=== PATIENT | male | born 1990 | race Caucasian/White ===

== ENCOUNTER 2017-02-21 23:11 | Emergency (ER) | payer OTHER ==
[~2017-02-21 23:11] MED LIST: ATARAX,VISTARIL25 MG PO; BUSPAR10 MG PO; CELEXA20 MG PO; CITALOPRAM HBR40 MG PO; DIVALPROEX SOD250 M1 PO; DIVALPROEX SOD250 MG PO; DOXYCYCLINE HY100 MG PO; FLUOXETINE HCL10 MG PO; FLUOXETINE HCL20 MG PO; HYDROXYZINE PAM50 MG PO; MOBIC7.5 MG PO; MOTRIN600 MG PO; NO HOME MEDS; NORCO 5/3251 TABLET PO; PEN-VEE K,VEET250 MG PO; PERCOCET 5/31 TABLET PO; PROZAC20 MG PO; TRAZODONE HCL50 MG PO; ULTRAM50 MG PO; VICODIN 5-3001 EACH PO
[2017-02-21 23:33] LABS: BASOPHIL COUNT 0.1 K/uL (0-0.1); EOSINOPHIL COUNT 0.1 K/uL (0-0.3); HEMATOCRIT 43.6 % (38.0-50.0); IMMATURE GRANULOCYTE (%) 0.4 % (0.0-0.7); IMMATURE GRANULOCYTE COUNT 0.1 K/uL; INSTRUMENT ABS NEUTROPHIL CT 9.8 K/uL; LYMPHOCYTE COUNT 2.7 K/uL (1.0-2.8); MCH 30.8 PG (29.0-34.0); MCHC 34.6 G/DL (30.0-36.0); MCV 88.8 FL (86-99); MEAN PLAT.VOLUME 10.1 uM^3 (9.0-12.4); MONOCYTE (%) 6.1 % (3-12); MONOCYTE COUNT 0.8 K/uL (0-0.8); NEUTROPHIL (%) 72.1 % (45-76); NEUTROPHIL COUNT 9.8 K/uL (1.8-6.4); PLATELET COUNT 242 K/uL (156-360); RBC DIS.WIDTH-CV 12.2 % (11.8-14.6); RBC DIS.WIDTH-SD 39.6 % (39-53); RED BLOOD COUNT 4.91 M/uL (4.00-5.50); WHITE BLOOD COUNT 13.5 K/uL (4.1-10.2)
[2017-02-21 23:45] LABS: AMYLASE 72 IU/L (1-118); CHLORIDE 108 mEq/L (99-109); POTASSIUM 3.7 mEq/L (3.7-5.4); SODIUM 144 mEq/L (136-147)
[2017-02-21 23:47] LABS: GLUCOSE 97 mg/dL (70-99)
[2017-02-21 23:48] LABS: ANION GAP 12 MEQ/L (2-14)
[2017-02-21 23:50] LABS: SERUM ETHYL ALCOHOL 134 mg/dL
[2017-02-21 23:51] LABS: GFR ESTIMATE (CALCULATED) > 59 mL/min/
[2017-02-21 23:52] LABS: UREA NITROGEN (BUN) 12 mg/dL (9-23)
[2017-02-21 23:54] LABS: LIPASE 8 U/L (1.0-51.0)
[2017-02-22] MEDS ORDERED: KEFLEX500 MG PO (00:22)
[2017-02-22 04:03] LABS: ADD MIUA? NO; BILIRUBIN NEGATIVE; BLOOD NEGATIVE; COLOR YELLOW ((YELLOW)); GLUCOSE (STRIP) NEGATIVE; KETONES 5; LEUKOCYTES NEGATIVE; NITRITE NEGATIVE; PROTEIN (STRIP) NEGATIVE; UCUL ADDED? NO
[2017-02-22 04:26] LABS: ADD MEDTOX COMMENT Y; AMPHETAMINE PRESUMPTIVE POSITIVE (500 ng/mL); BARBITURATES NEGATIVE (200 ng/mL); BENZODIAZEPINES PRESUMPTIVE POSITIVE (150 ng/mL); COCAINE NEGATIVE (150 ng/mL); INTERNAL CONTROLS VALID? YES; METHADONE NEGATIVE (200 ng/mL); METHAMPHETAMINE NEGATIVE (500 ng/mL); OPIATES (MORPHINE) NEGATIVE (100 ng/mL); OXYCODONE NEGATIVE (100 ng/mL); PHENCYCLIDINE NEGATIVE (25 ng/mL); PROPOXYPHENE NEGATIVE (300 ng/mL); THC CANNABINOIDS PRESUMPTIVE POSITIVE (50 ng/mL); TRICYCLIC ANTIDEPRESSANTS NEGATIVE (300 ng/mL)
[2017-02-22 04:48] LABS: SPECIFIC GRAVITY 1.055 (1.000-1.030)
[2017-02-22 05:16] LABS: AMPHETAMINES QUANT VALUE 0 NG/ML; BENZODIAZEPINES QUANT VALUE 0 NG/ML; BENZODIAZEPINES, URINE SCREEN Negative (200 ng/mL)
== END 2017-02-22 04:10 | disposition home or self-care (01) ==
LOC: TRA 23:11 → EDBD 23:11 → TRA 02-22 04:10
PROVIDERS: Emergency Medicine
DX: S40.812A Abrasion of left upper arm, initial encounter (principal); S40.811A Abrasion of right upper arm, initial encounter; S06.0X0A Concussion without loss of consciousness, initial encounter; M54.9 Dorsalgia, unspecified; V48.4XXA Person boarding or alighting a car injured in noncollision transport accident, initial encounter; Y92.410 Unspecified street and highway as the place of occurrence of the external cause; F10.99 Alcohol use, unspecified with unspecified alcohol-induced disorder; Y90.6 Blood alcohol level of 120-199 mg/100 ml
CPT/HCPCS: 70450; 71260; 72125; 72129; 72132; 74177; 80048; 81003; 82150; 83690; 84999; 85025; 86900; 86901; 99281; 99285; G0480; J2060; J2405; J3010

== ENCOUNTER 2017-03-27 03:13 | Inpatient (IN) | payer OTHER ==
[~2017-03-27] VITALS: Ht 180.3 cm; Wt 63.3 kg
[~2017-03-27 03:13] MED LIST changes: +KEFLEX500 MG PO
[2017-03-27 03:36] LABS: HEMATOCRIT 40.5 % (38.0-50.0); MCH 31.2 PG (29.0-34.0); MCHC 34.6 G/DL (30.0-36.0); MCV 90.2 FL (86-99); MEAN PLAT.VOLUME 10.4 uM^3 (9.0-12.4); PLATELET COUNT 207 K/uL (156-360); RBC DIS.WIDTH-CV 12.3 % (11.8-14.6); RBC DIS.WIDTH-SD 40.5 % (39-53); RED BLOOD COUNT 4.49 M/uL (4.00-5.50); WHITE BLOOD COUNT 11.1 K/uL (4.1-10.2)
[2017-03-27 03:45] LABS: CHLORIDE 107 mEq/L (99-109); POTASSIUM 3.2 mEq/L (3.7-5.4); SODIUM 142 mEq/L (136-147)
[2017-03-27 03:47] LABS: GLUCOSE 97 mg/dL (70-99)
[2017-03-27 03:48] LABS: ANION GAP 10 MEQ/L (2-14)
[2017-03-27 03:50] LABS: SERUM ETHYL ALCOHOL < 10 mg/dL
[2017-03-27 03:51] LABS: GFR ESTIMATE (CALCULATED) > 59 mL/min/; UREA NITROGEN (BUN) 14 mg/dL (9-23)
[2017-03-27 07:48] VITALS: BP 135/78
[2017-03-27 16:09] VITALS: BP 132/76
[2017-03-27 19:42] LABS: ADD MIUA? NO; BILIRUBIN NEGATIVE; BLOOD NEGATIVE; COLOR YELLOW ((YELLOW)); GLUCOSE (STRIP) NEGATIVE; KETONES NEGATIVE; LEUKOCYTES NEGATIVE; NITRITE NEGATIVE; PROTEIN (STRIP) NEGATIVE; SPECIFIC GRAVITY 1.015 (1.000-1.030); UCUL ADDED? NO
[2017-03-27 20:14] LABS: AMPHETAMINE NEGATIVE (500 ng/mL); BARBITURATES NEGATIVE (200 ng/mL); BENZODIAZEPINES NEGATIVE (150 ng/mL); COCAINE NEGATIVE (150 ng/mL); INTERNAL CONTROLS VALID? YES; METHADONE NEGATIVE (200 ng/mL); METHAMPHETAMINE NEGATIVE (500 ng/mL); OPIATES (MORPHINE) NEGATIVE (100 ng/mL); OXYCODONE NEGATIVE (100 ng/mL); PHENCYCLIDINE NEGATIVE (25 ng/mL); PROPOXYPHENE NEGATIVE (300 ng/mL); THC CANNABINOIDS PRESUMPTIVE POSITIVE (50 ng/mL); TRICYCLIC ANTIDEPRESSANTS NEGATIVE (300 ng/mL)
[2017-03-27 20:15] LABS: ADD MEDTOX COMMENT Y
[2017-03-28 07:49] VITALS: BP 119/58
[2017-03-28 15:37] VITALS: BP 141/78
[2017-03-29 07:47] VITALS: BP 140/64
[2017-03-29 15:49] VITALS: BP 134/79
[2017-03-30 07:46] VITALS: BP 110/75
[2017-03-30] MEDS ORDERED: RISPERDAL2 MG PO (09:44)
[2017-03-30] MEDS ORDERED: FLUOXETINE HCL20 MG PO (09:44)
[2017-03-30] MEDS ORDERED: DIVALPROEX SOD500 MG PO (09:44)
== END 2017-03-30 11:21 | disposition home or self-care (01) | DRG 885 ==
LOC: EME 03:13 → 1WEST 05:20 → EDOF 05:20 → 1WEST 05:57 → ENRESERV 05:57 → 1WEST 03-30 11:21
PROVIDERS: Emergency Medicine
DX: F29 Unspecified psychosis not due to a substance or known physiological condition (principal); R45.851 Suicidal ideations; Z68.1 Body mass index [BMI] 19.9 or less, adult; F33.9 Major depressive disorder, recurrent, unspecified; F19.121 Other psychoactive substance abuse with intoxication delirium; F12.10 Cannabis abuse, uncomplicated; F63.9 Impulse disorder, unspecified; F11.10 Opioid abuse, uncomplicated; F16.90 Hallucinogen use, unspecified, uncomplicated; F17.210 Nicotine dependence, cigarettes, uncomplicated; Z91.14 Patient's other noncompliance with medication regimen; Z56.0 Unemployment, unspecified; Z59.0 Homelessness; Z65.3 Problems related to other legal circumstances
CPT/HCPCS: 80048; 80164; 81003; 84999; 85027; 90837; 97150 GO; 97165 GO; 99281; 99285; G0480; Q0177

== ENCOUNTER 2017-04-28 21:57 | Emergency (ER) | payer OTHER ==
[~2017-04-28] VITALS: Ht 177.8 cm; Wt 70.0 kg
[~2017-04-28 21:57] MED LIST changes: +DIVALPROEX SOD500 MG PO; +RISPERDAL2 MG PO
[2017-04-28 22:49] LABS: HEMATOCRIT 44.7 % (38.0-50.0); MCH 30.7 PG (29.0-34.0); MCHC 33.8 G/DL (30.0-36.0); MCV 90.9 FL (86-99); MEAN PLAT.VOLUME 10.2 uM^3 (9.0-12.4); PLATELET COUNT 225 K/uL (156-360); RBC DIS.WIDTH-CV 12.7 % (11.8-14.6); RBC DIS.WIDTH-SD 42.7 % (39-53); RED BLOOD COUNT 4.92 M/uL (4.00-5.50); WHITE BLOOD COUNT 7.8 K/uL (4.1-10.2)
[2017-04-28 23:22] LABS: ANION GAP 12 MEQ/L (2-14); CHLORIDE 107 MEQ/L (99-109); GFR ESTIMATE (CALCULATED) > 59 mL/min/; GLUCOSE 86 mg/dL (70-99); POTASSIUM 3.6 MEQ/L (3.7-5.4); SAMPLE HEMOLYSIS CHECK 0; SAMPLE ICTERIC CHECK 0; SAMPLE LIPEMIA CHECK 0; SERUM ETHYL ALCOHOL 107 mg/dL; SODIUM 143 MEQ/L (136-147); UREA NITROGEN (BUN) 11 mg/dL (9-23)
[2017-04-29 00:18] LABS: ADD MEDTOX COMMENT Y; AMPHETAMINE NEGATIVE (500 ng/mL); BARBITURATES NEGATIVE (200 ng/mL); BENZODIAZEPINES NEGATIVE (150 ng/mL); COCAINE NEGATIVE (150 ng/mL); INTERNAL CONTROLS VALID? YES; METHADONE NEGATIVE (200 ng/mL); METHAMPHETAMINE NEGATIVE (500 ng/mL); OPIATES (MORPHINE) NEGATIVE (100 ng/mL); OXYCODONE NEGATIVE (100 ng/mL); PHENCYCLIDINE NEGATIVE (25 ng/mL); PROPOXYPHENE NEGATIVE (300 ng/mL); THC CANNABINOIDS PRESUMPTIVE POSITIVE (50 ng/mL); TRICYCLIC ANTIDEPRESSANTS NEGATIVE (300 ng/mL)
[2017-04-29 05:23] VITALS: BP 129/78
== END 2017-04-29 05:23 | disposition home or self-care (01) ==
LOC: EME 21:57
DX: F32.9 Major depressive disorder, single episode, unspecified (principal); F10.10 Alcohol abuse, uncomplicated; Y90.5 Blood alcohol level of 100-119 mg/100 ml; F19.10 Other psychoactive substance abuse, uncomplicated; F12.10 Cannabis abuse, uncomplicated; M79.641 Pain in right hand; Z04.6 Encounter for general psychiatric examination, requested by authority; F41.9 Anxiety disorder, unspecified; G40.909 Epilepsy, unspecified, not intractable, without status epilepticus; F17.200 Nicotine dependence, unspecified, uncomplicated
CPT/HCPCS: 73130; 80048; 84999; 85027; 90837; 99281; 99285; G0480; J1630

== ENCOUNTER 2017-10-05 23:25 | Emergency (ER) | payer OTHER ==
[~2017-10-05] VITALS: Ht 177.8 cm; Wt 69.4 kg
[2017-10-06 00:27] LABS: HEMATOCRIT 39.5 % (38.0-50.0); HEMOGLOBIN 13.6 G/DL (12.5-16.6); MCH 31.3 PG (29.0-34.0); MCHC 34.4 G/DL (30.0-36.0); MCV 90.8 FL (86-99); PLATELET COUNT 279 K/uL (156-360); RBC DIS.WIDTH-CV 12.8 % (11.8-14.6); RBC DIS.WIDTH-SD 42.5 % (39-53); RED BLOOD COUNT 4.35 M/uL (4.00-5.50); WHITE BLOOD COUNT 12.6 K/uL (4.1-10.2)
[2017-10-06 00:35] LABS: D-DIMER ELISA < 150.00 ng/mLDDU (<230)
[2017-10-06 00:40] LABS: ALBUMIN 3.8 g/dL (3.2-4.8); CHLORIDE 104 mEq/L (99-109); POTASSIUM 3.8 mEq/L (3.7-5.4); SODIUM 141 mEq/L (136-147)
[2017-10-06 00:43] LABS: GLUCOSE 89 mg/dL (70-99); TOTAL PROTEIN 6.3 g/dL (6.4-8.3)
[2017-10-06 00:44] LABS: TOTAL BILIRUBIN 0.4 mg/dL (0.0-1.0)
[2017-10-06 00:46] LABS: ALKALINE PHOSPHATASE 73 IU/L (3-129); CREATININE 0.8 mg/dL (0.6-1.3); GFR ESTIMATE (CALCULATED) > 59 mL/min/ (58.99-99999)
[2017-10-06 00:47] LABS: UREA NITROGEN (BUN) 9 mg/dL (9-23)
[2017-10-06 00:48] LABS: AST (GOT) 22 IU/L (2-34); DIRECT BILIRUBIN 0.2 mg/dL (0.0-0.3)
[2017-10-06 00:49] LABS: ALT (GPT) 22 IU/L (3-49)
[2017-10-06 00:50] LABS: LIPASE 5 U/L (1.0-51.0)
[2017-10-06] MEDS ORDERED: AUGMENTIN875 MG PO (01:00)
[2017-10-06] MEDS ORDERED: PREDNISONE20 MG PO (01:00)
[2017-10-06] MEDS ORDERED: ZITHROMAX250 MG PO (01:00)
[2017-10-06] MEDS ORDERED: VENTOLIN HFA18 GM IH (01:02)
[2017-10-06 01:33] VITALS: BP 120/72
[2017-10-06 01:39] LABS: TROP-I INTERPRETATION NEGATIVE; TROPONIN-I < 0.01 ng/mL (0.0-0.30)
== END 2017-10-06 01:36 | disposition home or self-care (01) ==
LOC: EME 23:25
PROVIDERS: Physician Assistant
DX: J18.0 Bronchopneumonia, unspecified organism (principal); K04.7 Periapical abscess without sinus; K02.9 Dental caries, unspecified; R10.12 Left upper quadrant pain; F17.200 Nicotine dependence, unspecified, uncomplicated; R07.9 Chest pain, unspecified; R05 Cough; Z59.0 Homelessness
CPT/HCPCS: 71046; 76705; 80048; 80076; 83690; 84484; 85027; 85379; 93005; 94640; 99281; 99285; J7512